=== PATIENT | female | born 1990 | race African-American/Black ===

== ENCOUNTER 2017-06-26 19:39 | Emergency (ER) | payer MEDICAID ==
[~2017-06-26] VITALS: Ht 167.6 cm; Wt 117.9 kg
[~2017-06-26 19:39] MED LIST: ADULT WAL-100 MG/5 M ORAL; NAPROSYN500 M1 ORAL; NKM
[2017-06-26 20:05] VITALS: BP 120/82
[2017-06-26] MEDS ORDERED: Dicyclomine HCl 10mg/5ml oral soln ORAL ONE (20:15)
[2017-06-26] MEDS ORDERED: Lidocaine 2% Visc 15ml soln ORAL ONE (20:15)
[2017-06-26] MEDS ORDERED: Mylanta II UD 30ml ORAL ONE (20:15)
[2017-06-26] MEDS ORDERED: RANITIDINE HCL150 MG ORAL (20:35)
[2017-06-26] MEDS ORDERED: ZOFRAN ODT4 MG ORAL (20:35)
[2017-06-26] MEDS ORDERED: BENTYL10 MG ORAL (20:35)
[2017-06-26 20:41] VITALS: BP 120/82
--- NOTE | 2017-06-26 21:23 | Emergency Room Report ---
History of Present Illness General Chief Complaint: Abdominal Pain Source: Patient Present Illness HPI 27-year-old female presents ED complaining of abdominal pain with vomiting and diarrhea. Started yesterday. Lower cramping abdominal pain, 5/10, nonradiating. Multiple episodes of vomiting and diarrhea. Denies recent antibiotic use. Denies recent travel. Denies sick contacts. Denies fevers or chills. No other aggravating relieving factors. Denies any other associated symptoms Allergies: Coded Allergies: No Known Allergies (Unverified , 05/27/16) Patient History Past Medical History: none Past Surgical History: none Pertinent Family History: none Social History: Denies: smoking, alcohol use, drug use Last Menstrual Period: 06/14/17 Now: No - IUD 11/2016 Immunizations: UTD Reviewed Nursing Documentation: PMH: Agreed, PSxH: Agreed Nursing Documentation-PMH Past Medical History: No Stated History Review of Systems All Other Systems: negative except mentioned in HPI Physical Exam Vital Signs Date Time Temp Pulse Resp B/P (MAP) Pulse Ox O2 Delivery O2 Flow Rate FiO2 06/26/17 19:41 98.2 110 16 120/82 95 Room Air Sp02 EP Interpretation: reviewed, normal General Appearance: no apparent distress, alert, GCS 15, non-toxic, obese Head: normocephalic, atraumatic Eyes: bilateral eye normal inspection, bilateral eye PERRL ENT: hearing grossly normal, normal pharynx, no angioedema, normal voice Neck: full range of motion, supple/symm/no masses Respiratory: chest non-tender, lungs clear, normal breath sounds, speaking full sentences Cardiovascular #1: regular rate, rhythm, no edema Cardiovascular #2: 2+ carotid (R), 2+ carotid (L), 2+ radial (R), 2+ radial (L) , 2+ dorsalis pedis (R), 2+ dorsalis pedis (L) Gastrointestinal: normal bowel sounds, non tender, soft, non-distended, no guarding, no rebound Rectal: deferred Genitourinary: normal inspection, no CVA tenderness Musculoskeletal: back normal, gait/station normal, normal range of motion, non- tender Neurologic: alert, oriented x3, responsive, motor strength/tone normal, sensory intact, speech normal Psychiatric: judgement/insight normal, memory normal, mood/affect normal, no suicidal/homicidal ideation Reflexes: 3+ bicep (R), 3+ bicep (L), 3+ tricep (R), 3+ tricep (L), 3+ knee (R) , 3+ knee (L) Skin: normal color, no rash, warm/dry, well hydrated Lymphatic: no adenopathy Medical Decision Making Diagnostic Impression: Primary Impression: Gastroenteritis ER Course Hospital Course 27-year-old F presents to ED with cramping abdominal pain with vomiting, diarrhea differential diagnosis: gastritis, SBO, cholecystits, gastroenteritis Clinical course Patient placed on stretcher. On clinical research monitor. After initial history exam reveals a female in no acute distress. Good capillary refill. Abdomen soft. No guarding rebound. Vital stable. I offered option for IV fluids and medications. Patient declined states she would prefer oral medications She given ODT Zantac, GI cocktail Upon reassessment, patient states pain has improved. I feel this is a highly complex case requiring extensive working including EKG/ Rhythm strip, Xray/CT/US, Blood/urine lab work, repeat exams while in ED, and administration of strong opiates/narcotics for pain control, admission to hospital or close patient follow up. Diagnosis - gastroenteritis Stable and discharged to home with prescriptions for Zantac, bentyl, zofran. Followup with PMD. Return to ED if symptoms recur or worsen Last Vital Signs Date Time Temp Pulse Resp B/P (MAP) Pulse Ox O2 Delivery O2 Flow Rate FiO2 06/26/17 20:41 98.2 110 16 120/82 95 Room Air Status: improved Disposition: HOME, SELF-CARE Condition: Stable Scripts Dicyclomine Hcl* (BENTYL*) 10 Mg Capsule 10 MG ORAL FOUR TIMES A DAY, #20 CAP Prov: RACHEAL CHATMAN M.D. 06/26/17 Ondansetron Odt* (ZOFRAN ODT*) 4 Mg Tab.rapdis 4 MG ORAL Q6H Y for Nausea & Vomiting, #30 TAB 0 Refills Prov: RACHEAL CHATMAN M.D. 06/26/17 Ranitidine Hcl* (ZANTAC*) 150 Mg Tablet 150 MG ORAL TWICE A DAY, #30 TAB Prov: RACHEAL CHATMAN M.D. 06/26/17 Patient Instructions: Viral Gastroenteritis, Adult, [id number] RACHEAL CHATMAN M.D. Jun 26, 2017 21:23
== END 2017-06-26 20:41 | disposition home or self-care (01) ==
LOC: EMR 20:05
DX: K52.9 Noninfective gastroenteritis and colitis, unspecified (principal)
CPT/HCPCS: 99284

== ENCOUNTER 2017-11-25 16:22 | Emergency (ER) | payer MEDICAID ==
[~2017-11-25] VITALS: Ht 167.6 cm; Wt 104.3 kg
[~2017-11-25 16:22] MED LIST changes: +BENTYL10 MG ORAL; +RANITIDINE HCL150 MG ORAL; +ZOFRAN ODT4 MG ORAL
[2017-11-25] MEDS ORDERED: ALBUTEROL2.5 MG/3 M INH (16:48)
[2017-11-25 16:57] VITALS: BP 136/69
[2017-11-25] MEDS ORDERED: Hurricaine 20% Spray ORO ONE (17:15)
[2017-11-25] MEDS ORDERED: Hydrogen Peroxide 473ml Bottle TOPIC ONE (17:15)
--- NOTE | 2017-11-25 17:22 | Emergency Room Report ---
History of Present Illness General Chief Complaint: Skin Rash/Abscess Source: Patient Present Illness HPI 27 YO Female 7 out of 10 in severity pain, swelling to the right lower jaw 4 days. Patient denies dental pain she reports she has been noticing dry mouth recently she states that she does know that she requires some dental procedures to be done. Denies fevers or chills patient states that the swelling varies in size however this is the most swollen that it has been over the past 4 days. Patient states she's been taking Motrin with no relief. Patient denies fevers, chills, trauma to the mouth, ear or neck pain. she denies recent upper respiratory illness/or other illnesses. Denies CP, Palpitations, LOC, AMS, dizziness, Changes in Vision, Sensation, paresthesias, or a sudden severe headache. Allergies: Coded Allergies: No Known Allergies (Unverified , 05/27/16) Patient History Past Medical History: see triage record Past Surgical History: none Pertinent Family History: none Last Menstrual Period: 11/13/17 Reviewed Nursing Documentation: PMH: Agreed; PSxH: Agreed Nursing Documentation-PMH Hx Asthma: Yes Review of Systems All Other Systems: negative except mentioned in HPI Physical Exam Vital Signs Date Time Temp Pulse Resp B/P (MAP) Pulse Ox O2 Delivery O2 Flow Rate FiO2 11/25/17 16:46 98.7 69 17 136/69 96 Room Air 98.8 Sp02 EP Interpretation: reviewed, normal General Appearance: no apparent distress, alert, GCS 15, non-toxic Head: normocephalic, atraumatic ENT: hearing grossly normal, normal voice, other - palpable fluctuance of the buccal portion and gum line near Tooth no. 31. . Swelling noted externally to the right lower jaw area. no erythema Neck: full range of motion, no meningismus Respiratory: lungs clear, normal breath sounds, speaking full sentences Cardiovascular #1: regular rate, rhythm Musculoskeletal: back normal, gait/station normal, normal range of motion, non- tender Neurologic: alert, oriented x3, responsive, motor strength/tone normal, sensory intact, speech normal, grossly normal Psychiatric: judgement/insight normal Skin: normal color, no rash, warm/dry, well hydrated Lymphatic: no adenopathy, other Procedures Incision and Drainage Incision and Drainage : Consent: Verbal Site: right lower gumline Blade Size: 11 Wound Location: other - mouth Wound's Depth, Shape: superficial Wound Length (cm): 1 Wound Explored: contaminated Irrigated w/ Saline (ccs): 500 Anesthesia: other - hurricane spray Volume Anesthetic (ccs): 1 - 1 Splint Applied?: No Sling Applied?: No Patient Tolerated: Well Complications: None Medical Decision Making PA Attestation Dr. Chow is my supervising Physician whom patient management has been discussed with. Diagnostic Impression: Primary Impression: Sialolithiasis, ductal Additional Impression: Sialoadenitis ER Course 27 YO Female 7 out of 10 in severity pain, swelling to the right lower jaw 4 days. Patient denies dental pain she reports she has been noticing dry mouth recently she states that she does know that she requires some dental procedures to be done. Denies fevers or chills patient states that the swelling varies in size however this is the most swollen that it has been over the past 4 days. Patient states she's been taking Motrin with no relief. Patient denies fevers, chills, trauma to the mouth, ear or neck pain. she denies recent upper respiratory illness/or other illnesses. Denies CP, Palpitations, LOC, AMS, dizziness, Changes in Vision, Sensation, paresthesias, or a sudden severe headache. Ddx considered but are not limited to cellulitis, dental abscess, orbital cellulitis, d/l tooth, dental pain. trigeminal neuralgia Vital signs: are WNL, pt. is afebrile H&PE are most consistent with mild sialoadenitis secondary to lithiasis. palpable fluctuance of the buccal portion and gum line near Tooth no. 31 ORDERS: none required at this time, the diagnosis is clinical ED INTERVENTIONS: -D/w pt. options for treatment range from conservative to I & D. pt. decided that based on the severity of her symptoms she would like I & D performed, and hot compresses and gentle massage at home have not been successful. Pt. given strict ED return precautions. DISCHARGE: At this time pt. is stable for d/c to home. Will provide printed patient care instructions, and any necessary prescriptions. Care plan and follow up instructions have been discussed with the patient prior to discharge. Last Vital Signs Date Time Temp Pulse Resp B/P (MAP) Pulse Ox O2 Delivery O2 Flow Rate FiO2 11/25/17 16:57 98.8 17 136/69 96 Room Air 98.8 11/25/17 16:46 69 Disposition: HOME, SELF-CARE Condition: Stable Scripts Ibuprofen* (MOTRIN*) 600 Mg Tablet 600 MG ORAL THREE TIMES A DAY, #21 TAB 0 Refills Prov: Anna Vidales 11/25/17 Chlorhexidine Gluconate (CHLORHEXIDINE GLUCONATE) 473 Ml Mouthwash 15 ML MM BID, #473 ML Prov: Anna Vidales 11/25/17 Amoxicillin/Potassium Clav 875-125* (AUGMENTIN 875-125 TABLET*) 1 Each Tablet 1 TAB ORAL TWICE A DAY for 7 Days, #14 TAB Prov: Anna Vidales 11/25/17 Patient Instructions: Salivary Gland Infection, Salivary Stone Additional Instructions: Take medications as directed. *Hot Compresses with gentle massage every 30mins to 1 hour. * Suck on hard candy, or a thick milkshake through a straw. Follow up with a Primary Care Provider in 3-5 days, even if your symptoms have resolved. --Please review list of primary care clinics, if you do not already have a primary care provider Return sooner to ED if new symptoms occur, or current symptoms become worse. - Please note that this Emergency Department Report was dictated using [employer] lens generator technology software, occasionally this can lead to erroneous entry secondary to interpretation by the dictation equipment. Anna Vidales Nov 25, 2017 17:22
[2017-11-25] MEDS ORDERED: CHLORHEXIDINE473 ML MM (17:43)
[2017-11-25] MEDS ORDERED: AUGMENTIN 875-1 EAC1 ORAL (17:43)
[2017-11-25] MEDS ORDERED: IBUPROFEN600 MG ORAL (17:43)
== END 2017-11-25 18:00 | disposition home or self-care (01) ==
LOC: EMR 18:00
DX: K11.5 Sialolithiasis (principal); K11.20 Sialoadenitis, unspecified; J45.909 Unspecified asthma, uncomplicated
CPT/HCPCS: 10060; 99284

== ENCOUNTER 2017-12-02 19:07 | Emergency (ER) | payer MEDICAID ==
[~2017-12-02] VITALS: Ht 167.6 cm; Wt 104.3 kg
[~2017-12-02 19:07] MED LIST changes: +ALBUTEROL2.5 MG/3 M INH; +AUGMENTIN 875-1 EAC1 ORAL; +CHLORHEXIDINE473 ML MM; +IBUPROFEN600 MG ORAL
[2017-12-02 19:45] VITALS: BP 122/79
--- NOTE | 2017-12-02 19:48 | Emergency Room Report ---
History of Present Illness General Chief Complaint: Pain Source: Patient (Anna Vidales) Present Illness HPI 27 YO Female returns to the ED c/o 01/07 in severity pain, swelling and "hardening " to right lower jaw soft tissues/cheek times one day.Patient was originally treated with Augmentin for salivary ductal stone with infection several days ago. Patient states that her symptoms resolved and then have returned and she is still taking medication. Patient so has been doing hot compresses and hard candy instructions that were previously given.She denies symptoms in this area previously and reports acute onset for the most part. Denies fevers or chills. Denies tooth pain. denies pain with swallowing, or tender lymph nodes. (Anna Vidales) Allergies: Coded Allergies: No Known Allergies (Unverified , 12/02/17) Patient History Past Medical History: see triage record Past Surgical History: none Pertinent Family History: none Last Menstrual Period: 09/2017 Reviewed Nursing Documentation: PMH: Agreed; PSxH: Agreed (Anna Vidales) Nursing Documentation-PMH Past Medical History: No History, Except For Hx Asthma: Yes (Anna Vidales) Review of Systems All Other Systems: negative except mentioned in HPI (Anna Vidales) Physical Exam Vital Signs Date Time Temp Pulse Resp B/P (MAP) Pulse Ox O2 Delivery O2 Flow Rate FiO2 12/02/17 19:12 98.1 72 16 122/79 97 Room Air 98.1 Sp02 EP Interpretation: reviewed, normal General Appearance: alert, GCS 15, non-toxic, mild distress Head: normocephalic, atraumatic ENT: hearing grossly normal, no angioedema, normal voice, uvula midline, moist mucus membranes, other - Well-circumscribed palpable mass to the right lower jaw. No fluctuance, erythema or increased temperature to palpation. no stone palpated on bimanual exam. Neck: full range of motion, thyroid normal Respiratory: lungs clear, normal breath sounds, speaking full sentences Cardiovascular #1: regular rate, rhythm Musculoskeletal: back normal, gait/station normal, normal range of motion, non- tender - no bony ttp. Neurologic: alert, oriented x3, responsive, motor strength/tone normal, sensory intact, speech normal, grossly normal Psychiatric: judgement/insight normal Skin: normal color, no rash, warm/dry, well hydrated Lymphatic: no adenopathy (Anna Vidales) Procedures Incision and Drainage Incision and Drainage : Consent: Verbal Site: dental Blade Size: 11 Wound Location: face Anesthesia: Lidocaine w/ Epi Volume Anesthetic (ccs): 2 Patient Tolerated: Well Complications: None Progress Local anesthetic 1% lidocaine with epinephrine. Using 11 blade scalpel, and made a 1 cm incision to the most indurated area. There was small amount of pus expressed. Patient tolerated procedure without a problem. (RICCI JOSHUA M.D.) Medical Decision Making PA Attestation Dr. Garcia is my supervising Physician whom patient management has been discussed with. (Anna Vidales) Diagnostic Impression: Primary Impression: Dental abscess ER Course 27 YO Female returns to the ED c/o 01/07 in severity pain, swelling and "hardening " to right lower jaw soft tissues/cheek times one day.Patient was originally treated with Augmentin for salivary ductal stone with infection several days ago. Patient states that her symptoms resolved and then have returned and she is still taking medication. Patient so has been doing hot compresses and hard candy instructions that were previously given.She denies symptoms in this area previously and reports acute onset for the most part. Denies fevers or chills. Denies tooth pain. denies pain with swallowing, or tender lymph nodes. Ddx considered but are not limited to Salivary stone, abscess, cyst, LAD, tumor just to name a few. Vital signs: are WNL, pt. is afebrile H&PE are most consistent with Well-circumscribed palpable mass to the right lower jaw. That was visualized is 1.5 cm with bedside ultrasound. - no fluctuance, erythema or increased temperature to palpation. no stone palpated on bimanual exam. ORDERS: -CBC: WNL -CMP: WNL -CRP: 1.1 ( mildly elevated) -ESR: Pending - Serum Hcg:Negative -CT Maxillofacial W. Contrast: Pending ED INTERVENTIONS: -[place] PO Pt. signed out to Dr. Joshua awaiting ESR, and CT results. Labs Test 12/02/17 21:00 White Blood Count 8.9 K/UL (4.8-10.8) Red Blood Count 4.59 M/UL (4.20-5.40) Hemoglobin 13.8 G/DL (12.0-16.0) Hematocrit 41.4 % (37.0-47.0) Mean Corpuscular Volume 90 FL (80-99) Mean Corpuscular Hemoglobin 30.0 PG (27.0-31.0) Mean Corpuscular Hemoglobin Concent 33.3 G/DL (32.0-36.0) Red Cell Distribution Width 11.9 % (11.6-14.8) Platelet Count 253 K/UL (150-450) Mean Platelet Volume 8.6 FL (6.5-10.1) Neutrophils (%) (Auto) 52.7 % (45.0-75.0) Lymphocytes (%) (Auto) 35.1 % (20.0-45.0) Monocytes (%) (Auto) 8.0 % (1.0-10.0) Eosinophils (%) (Auto) 2.3 % (0.0-3.0) Basophils (%) (Auto) 1.9 % (0.0-2.0) Sodium Level 137 MMOL/L (136-145) Potassium Level 3.9 MMOL/L (3.5-5.1) Chloride Level 104 MMOL/L (98-107) Carbon Dioxide Level 29 MMOL/L (21-32) Anion Gap 4 mmol/L (5-15) Blood Urea Nitrogen 9 mg/dL (7-18) Creatinine 0.8 MG/DL (0.55-1.30) Estimat Glomerular Filtration Rate > 60 mL/min (>60) Glucose Level 90 MG/DL (74-106) Calcium Level 9.0 MG/DL (8.5-10.1) Total Bilirubin 0.5 MG/DL (0.2-1.0) Aspartate Amino Transf (AST/SGOT) 15 U/L (15-37) Alanine Aminotransferase (ALT/SGPT) 22 U/L (12-78) Alkaline Phosphatase 52 U/L (46-116) C-Reactive Protein, Quantitative 1.1 mg/dL (0.00-0.90) Total Protein 7.7 G/DL (6.4-8.2) Albumin 3.8 G/DL (3.4-5.0) Globulin 3.9 g/dL Albumin/Globulin Ratio 1.0 (1.0-2.7) Human Chorionic Gonadotropin, Qual Negative (Anna Vidales) ER Course Patient signout to me. She presents with the swelling to her mouth area. CT scan showed colitis abscess. I are needed. We'll discharge patient with antibiotics prescription. (RICCI JOSHUA M.D.) CT/MRI/US Diagnostic Results CT/MRI/US Diagnostic Results : Imaging Test Ordered: CT facial Impression read by radiologist. 1.2 cm abscess right facial subcutaneous soft tissue. (RICCI JOSHUA M.D.) Last Vital Signs Date Time Temp Pulse Resp B/P (MAP) Pulse Ox O2 Delivery O2 Flow Rate FiO2 12/02/17 19:12 98.1 72 16 122/79 97 Room Air 98.1 (Anna Vidales) Status: improved (RICCI JOSHUA M.D.) Disposition: HOME, SELF-CARE Condition: Stable Signed Out To: Dr. Joshua (Anna Vidales) Scripts Hydrocodone/Acetaminophen 7.5-325* (HYDROCODON-ACETAMINOPH 7.5-325*) 1 Each Tablet 1 TAB ORAL Q6H PRN for For Pain, #20 TAB 0 Refills Prov: RICCI JOSHUA M.D. 12/02/17 Clindamycin Hcl (CLINDAMYCIN HCL) 300 Mg Capsule 300 MG ORAL THREE TIMES A DAY, #21 CAP Prov: RICCI JOSHUA M.D. 12/02/17 Additional Instructions: Follow-up with dentist JOHNATHAN. Return if worse. Anna Vidales Dec 02, 2017 19:48 RICCI JOSHUA M.D. Dec 02, 2017 23:52
[2017-12-02] MEDS ORDERED: Norco 5mg/325mg tab ORAL ONE (20:15)
[2017-12-02] MEDS ORDERED: Isovue-300 100ml vial INJ PRN (20:45)
[2017-12-02 21:32] LABS: BASOPHILS % (AUTO) 1.9 % (0.0-2.0); EOSINOPHILS % (AUTO) 2.3 % (0.0-3.0); HEMATOCRIT 41.4 % (37.0-47.0); HEMOGLOBIN 13.8 G/DL (12.0-16.0); LYMPHOCYTES % (AUTO) 35.1 % (20.0-45.0); MEAN CORPUSCULAR VOLUME 90 FL (80-99); NEUTROPHILS % (AUTO) 52.7 % (45.0-75.0); PLATELET COUNT 253 K/UL (150-450); RED BLOOD COUNT 4.59 M/UL (4.20-5.40); RED CELL DISTRIBUTION WIDTH 11.9 % (11.6-14.8); WHITE BLOOD COUNT 8.9 K/UL (4.8-10.8)
[2017-12-02 21:53] LABS: ANION GAP 4 mmol/L (5-15); BLOOD UREA NITROGEN 9 mg/dL (7-18); CARBON DIOXIDE 29 MMOL/L (21-32); CHLORIDE 104 MMOL/L (98-107); CREATININE 0.8 MG/DL (0.55-1.30); POTASSIUM 3.9 MMOL/L (3.5-5.1); SODIUM 137 MMOL/L (136-145)
[2017-12-02 21:58] LABS: ALANINE AMINOTRANSFERASE 22 U/L (12-78); ALBUMIN 3.8 G/DL (3.4-5.0); ALKALINE PHOSPHATASE 52 U/L (46-116); ASPARTATE AMINO TRANSFERASE 15 U/L (15-37); BILIRUBIN,TOTAL 0.5 MG/DL (0.2-1.0)
[2017-12-02] MEDS ORDERED: HYDROCODON-ACE1 EA16 ORAL (23:51)
[2017-12-02] MEDS ORDERED: CLINDAMYCIN HC300 MG ORAL (23:51)
[2017-12-03 00:18] VITALS: BP 141/92
[2017-12-03 00:19] VITALS: BP 141/92
--- NOTE | 2017-12-03 10:23 | Diagnostic Imaging Report ---
Indication: Swelling and pain of the right lower jaw Technique: Continuous helical transaxial imaging of the maxillofacial structures obtained after intravenous contrast administration. Coronal 2-D reformats were also obtained. Study obtained in a Siemens sensation [address] Total Dose length Product (DLP): 566.[address] Dose Index Volume (CTDIvol): 28.19 mGy Comparison: None Findings: There is a 1.5 cm focus of nodular enhancement just lateral to the right body of the mandible. There is a small amount of the adjacent subcutaneous soft tissue stranding likely inflammation. Correlate clinically. The enhancement is not associated with significant central nonenhancing component or fluid to suggest abscess. Paranasal sinuses and mastoids are clear. Soft tissues are unremarkable. There is mild mucosal thickening present within portions of the paranasal sinuses especially the ethmoid region. TMJs are unremarkable. Mastoids are clear bilaterally. The orbits appear symmetric. There is no proptosis. IMPRESSION: Inflammation lateral to the right mandible. No definite abscess although there is a area of nodular enhancement. This may be phlegmon or inflammatory node.
== END 2017-12-03 00:19 | disposition home or self-care (01) ==
LOC: EMR 20:10
DX: K04.7 Periapical abscess without sinus (principal); M27.2 Inflammatory conditions of jaws; J45.909 Unspecified asthma, uncomplicated
CPT/HCPCS: 10060; 36415; 70487; 80053; 84703; 85025; 85651; 86140; 99284; Q9967